=== PATIENT | male | born 2000 | race Caucasian/White ===

== ENCOUNTER 2021-12-08 19:04 | Emergency (ER) | payer SELFPAY ==
[~2021-12-08] VITALS: Ht 180.3 cm; Wt 61.3 kg
[2021-12-08 19:06] VITALS: BP 136/74
== END 2021-12-08 23:19 | disposition left against medical advice (07) ==
LOC: M ED 19:04
DX: Z53.29 Procedure and treatment not carried out because of patient's decision for other reasons (principal)